=== PATIENT | female | born 1945 | race African-American/Black ===

== ENCOUNTER 2017-10-28 06:03 | Day surgery (SDC) | payer MEDICARE, OTHER ==
--- NOTE | 2017-10-23 16:10 | Pre-Procedure Note/Attestation ---
Pre-Procedure Note/Attestation Complete Prior to Procedure Planned Procedure: left Procedure Narrative: phaco with IOL Indications for Procedure Pre-Operative Diagnosis: cataract Attestation I attest that I discussed the nature of the procedure; its benefits; risks and complications; and alternatives (and the risks and benefits of such alternatives ), prior to the procedure, with the patient (or the patient's legal farm loan representative). I attest that, if there was a reasonable possibility of needing a blood transfusion, the patient (or the patient's legal farm loan representative) was given the [facility] standardized written summary, pursuant to the [place] Blood Safety Act ([place] Health and Safety Code # 1645, as amended). I attest that I re-evaluated the patient just prior to the surgery and that there has been no change in the patient's H&P, except as documented below: SIENA PHILIPPE Oct 23, 2017 16:10
--- NOTE | 2017-10-23 16:12 | Opthalmology H&P ---
Ophthalmology H&P H&P Chief Complaint: decreased vision in left eye HPI Vision Affects Ability to: read, focus/use eyes together, manage personal affairs HPI Narrative blurry vision Exam Visual Acuity: OD: 20/60 OS: 20/100 Tension: OD: 19 OS: 20 Eye Exam: normal OU: external exam, palpebral fissure-width, marginal reflex distance, levator function, corneas, anterior chambers, fundus exam; findings: lens - OD: ns OS: ns Assessment/Plan Diagnosis: (1) Nuclear sclerotic cataract of left eye Treatment Plan: cataract extraction w/ lens implant Goals of Treatment: improvement of vision, enhance quality of life Attestation Attestation The risks and benefits of the surgery as well as alternative procedures were explained to the patient in detail. SIENA PHILIPPE Oct 23, 2017 16:12
[2017-10-24 09:54] LABS: HEMATOCRIT 42.8 % (37.0-47.0); HEMOGLOBIN 13.6 G/DL (12.0-16.0); MEAN CORPUSCULAR VOLUME 94 FL (80-99); PLATELET COUNT 272 K/UL (150-450); RED BLOOD COUNT 4.53 M/UL (4.20-5.40); RED CELL DISTRIBUTION WIDTH 17.5 % (11.6-14.8); WHITE BLOOD COUNT 4.6 K/UL (4.8-10.8)
[2017-10-24 10:28] LABS: ANION GAP 7 mmol/L (5-15); BLOOD UREA NITROGEN 15 mg/dL (7-18); CALCIUM 8.9 MG/DL (8.5-10.1); CARBON DIOXIDE 31 MMOL/L (21-32); CHLORIDE 105 MMOL/L (98-107); CREATININE 0.9 MG/DL (0.55-1.30); POTASSIUM 3.7 MMOL/L (3.5-5.1); SODIUM 143 MMOL/L (136-145)
--- NOTE | 2017-10-27 16:08 | Cardiology Report ---
APPROVED REPORT EKG Measurement Heart [id number] Normal sinus rhythm with sinus arrhythmia Moderate voltage criteria for LVH, may be normal variant Prolonged QT Abnormal ECG
[~2017-10-28] VITALS: Ht 160 cm; Wt 75.3 kg
[2017-10-28] VITALS (10 sets, daily range): BP systolic 130–141; BP diastolic 70–81
[~2017-10-28 06:03] MED LIST: ACID REDUCER20 MG ORAL; ACYCLOVIR400 MG ORAL; ASPIR 8181 MG ORAL; FLUOXETINE HCL10 M2 ORAL; FLUOXETINE HCL20 M2 ORAL; FOLIC ACID1 M1 PO; FUROSEMIDE40 MG ORAL; HYDROXYCHLOROQ200 M1 PO; MECLIZINE HCL25 MG ORAL; MEDROL4 MG ORAL; METHOTREXATE2.5 MG PO; NORCO 5-325 TA1 EACH ORAL; NORVASC5 MG ORAL; POTASSIUM CHLO10 ME2 PO
[2017-10-28] MEDS ORDERED: Proparacaine 0.5% Opth Soln 15ml LEFT EYE ONE (07:00)
[2017-10-28] MEDS ORDERED: Pred Forte 1% Opth Susp 1ml ONE (07:00)
[2017-10-28] MEDS ORDERED: Tetracaine 0.5% Opth 4ml Soln LEFT EYE ONE (07:00)
[2017-10-28] MEDS ORDERED: Akten 3.5% 1ml Btl LEFT EYE ONE (07:00)
[2017-10-28] MEDS ORDERED: Maxitrol Opth Oint 3.5gm ONE (07:00)
[2017-10-28] MEDS ORDERED: Dexamethasone 4mg/ml vial ONE (07:00)
[2017-10-28] MEDS ORDERED: Pilocarpine 2% Opth 15ml Soln ONE (07:00)
[2017-10-28] MEDS ORDERED: EPINEPHrine 1mg/1ml Amp ONE (07:38)
[2017-10-28] MEDS ORDERED: Povidone-Iodine 5% opth solution ONE (07:39)
[2017-10-28] MEDS ORDERED: BSS 500ml btl ONE (07:39)
[2017-10-28] MEDS ORDERED: BSS 15ml BTL ONE (07:39)
[2017-10-28] MEDS ORDERED: Sodium Hyaluronate 14 mg/ml 0.85ml ONE (07:39)
[2017-10-28] MEDS: Tropicamide 1% Opth 15ml Soln LEFT EYE SCH ×3 (08:20→08:34)
[2017-10-28] MEDS: Phenylephrine 10% Opth Soln 5ml LEFT EYE SCH ×3 (08:20→08:34)
[2017-10-28] MEDS: Cyclopentolate 1% Opth Sol 2ml LEFT EYE SCH ×3 (08:20→08:34)
[2017-10-28] MEDS: Diclofenac Sod 0.1% Op Soln LEFT EYE SCH ×3 (08:20→08:34)
[2017-10-28] MEDS: Tobramycin Op Soln 0.3% 5ml LEFT EYE SCH ×3 (08:20→08:34)
--- NOTE | 2017-10-28 09:47 | Anethesia Preoperative Eval ---
Anesthesia Pre-op PMH/ROS General Date of Evaluation: Oct 28, 2017 Time of Evaluation: 09:44 Anesthesiologist: Marylin De Leon CRNA ASA Score: ASA 3 Mallampati Score Class I : Soft palate, uvula, fauces, pillars visible Class II: Soft palate, uvula, fauces visible Class III: Soft palate, base of uvula visible Class IV: Only hard plate visible Mallampati Classification: Class II Surgeon: Paris Diagnosis: LEFT cataract Surgical Procedure: LEFT cataract extraction with IOL Anesthesia History: none Family History: no anesthesia problems Allergies: Coded Allergies: No Known Allergies (Unverified , 10/28/17) Medications: see eMAR Past Medical History Cardiovascular: Reports: HTN, other - takes lasix PRN denies hx of CHF Pulmonary: Denies: asthma, COPD, ANTONY, other Gastrointestinal/Genitourinary: Reports: GERD; Denies: CRI, ESRD, other Neurologic/Psychiatric: Denies: dementia, CVA, depression/anxiety, TIA, other Endocrine: Reports: other - Lupus; Denies: DM, hypothyroidism, steroids HEENT: Reports: cataract (L); Denies: cataract (R), glaucoma, [place] (L), [place] (R), other Hematology/Immune: Reports: anemia; Denies: DVT, bleeding disorder, other Musculoskeletal/Integumentary: Reports: OA; Denies: RA, DJD, DDD, edema, other Other: obesity PMH Narrative: as above PSxH Narrative: c/s, Bilateral tubal ligation Anesthesia Pre-op Phys. Exam Physician Exam Last Vital Signs Date Time Temp Pulse Resp B/P (MAP) Pulse Ox O2 Delivery O2 Flow Rate FiO2 10/28/17 08:24 Room Air 10/28/17 08:23 97.0 71 18 141/79 (99) 100 97.0 Constitutional: NAD Neurologic: CN 2-12 intact Cardiovascular: RRR Respiratory: CTA Gastrointestinal: S/NT/ND Airway Exam Mallampati Score: Class II MO: full ROM: full Teeth: broken Dentures: no upper, no lower Anesthesia Pre-op A/P Labs see chart Studies Pre-op Studies: EKG - NSR with SA, LVH, prolonged QT Risk Assessment & Plan Assessment: ASA 3ok to proceed Plan: MAC Status Change Before Surgery: No Pre-Antibiotics Given Within 1 Hr of Incision: No Geri De Leon [employer]ACHINE OPERATOR Oct 28, 2017 09:47
[2017-10-28] MEDS ORDERED: Midazolam 2mg/2ml Inj ONE (09:51)
[2017-10-28] MEDS ORDERED: LR 1000ml ONE (10:00)
[2017-10-28] MEDS ORDERED: NS Irrig 1000ml ONE (10:00)
[2017-10-28] MEDS ORDERED: Sterile Water Irrig 1000ml IRRIG ONE (10:00)
[2017-10-28] MEDS ORDERED: Solu-MEDROL 40mg Inj ONE (10:10)
--- NOTE | 2017-10-28 10:54 | Immediate Post-Op Evaluation ---
Immediate Post-Op Evalulation Immediate Post-Op Evalulation Procedure: LEFT cataract extraction with IOL Date of Evaluation: Oct 28, 2017 Time of Evaluation: 10:47 IV Fluids: LR 200 ML Estimated Blood Loss: 01 Blood Pressure Systolic: 132 Blood Pressure Diastolic: 71 Pulse Rate: 77 Respiratory Rate: 19 O2 Sat by Pulse Oximetry: 100 Temperature (Fahrenheit): 98.1 Pain Score (1-10): 0 Nausea: No Vomiting: No Complications none Patient Status: awake, reacts, patent Hydration Status: adequate Given Within 1 Hr of Incision: Geri Potter CRNA Oct 28, 2017 10:54
--- NOTE | 2017-10-28 12:48 | 48 Hour Post Anesthesia Eval ---
Post Anesthesia Evaluation Procedure: LEFT cataract extraction with IOL Date of Evaluation: Oct 28, 2017 Time of Evaluation: 11:30 Blood Pressure Systolic: 132 0: 79 Pulse Rate: 70 Respiratory Rate: 14 Temperature (Fahrenheit): 98.1 O2 Sat by Pulse Oximetry: 100 Airway: patent Nausea: No Vomiting: No Pain Intensity: 0 Hydration Status: adequate Cardiopulmonary Status: stable Mental Status/LOC: patient returned to baseline Follow-up Care/Observations: none Post-Anesthesia Complications: none Follow-up care needed: ready to discharge Geri De Leon CRNA Oct 28, 2017 12:48
[2017-10-28] MEDS ORDERED: acetaZOLAMIDE 500mg Inj ONE (14:23)
--- NOTE | 2017-10-29 17:05 | Brief Operative Note ---
Immediate Post Operative Note Operative Note Chief Complaint: blurry vision Pre-op Diagnosis: cataract, OS Procedure: phaco with IOL Post-op Diagnosis: Pseudophakia Post-op Diagnosis: same as pre-op Findings: consistent w/pre-op dx studies Surgeon: Paris Anesthesiologist: Haley Anesthesia: MAC Specimen: none Complications: none Condition: stable Fluids: LR Estimated Blood Loss: none Drains: none Implant(s) used?: Yes SIENA PHILIPPE Oct 29, 2017 17:05
--- NOTE | 2017-10-30 09:11 | Operative Note - PDOC ---
Operative Note Operative Note Date of Operation/Procedure: Oct 28, 2017 Chief Complaint: blurry vision Pre-op Diagnosis: cataract, OS Procedure: phaco with IOL Post-op Diagnosis: Pseudophakia Post-op Diagnosis: same as pre-op Operative Findings: consistent w/pre-op dx studies Surgeon: Paris Anesthesiologist: Haley Anesthesia: MAC Specimen: none Complications: none Condition: stable Fluids: LR Estimated Blood Loss: none Drains: none Implant(s) used?: Yes Indications for Procedure cataract Description of Procedure This patient has been complaining visually significant cataract in the affected eye with the best corrected visual acuity under moderate glare conditions worse. The patient complains of difficulties with glare in performing activities of daily living and wants to manage personal affairs with comfort and accuracy and see well enough to move with safety at home and outdoors. The risks, benefits and alternatives of the procedure were discussed with the patient in the office prior to scheduling surgery. All questions from the patient were answered after the surgical procedure was explained in detail. The risks of the procedure as explained to the patient include, but are not limited to, pain, infection, bleeding, loss of vision, retinal detachment, need for further surgery, loss of lens nucleus, double vision, etc. Alternative procedures were discussed which include, to do nothing or seek a second opinion. Informed consent for this procedure was obtained from the patient. The patient was referred to a primary care physician for a cardiopulmonary clearance prior to surgery, after proper evaluation was done patient was properly scheduled for outpatient surgery. The patient was brought to the operating room where the anesthesiologist established I.V. lines and cardiac monitoring leads. Mild intravenous sedation was administered. The patient was then prepared with a 5% solution of povidone -iodine to the conjunctival fornix and lashes, and a 5% solution of povidone- iodine to the lids and periorbital skin. The patient was then draped in the usual sterile fashion. A lid speculum was then placed in the operative eye. A keratome blade was then used to create a biplanar incision into the anterior chamber. Viscoelastics was then instilled into the anterior chamber. A curvilinear capsulorrhexis was then fashioned with an utrata forceps. A BSS was used with G-27 cannula was used to hydrodissect and hydrodelineate the lens nucleus. Paracentesis incision was made at 9 o'clock with sharp blade. The phacoemulsification unit, after being properly adjusted and tested, was then used to emulsify the nucleus. Residual cortical material was aspirated with the irrigation and aspiration unit. Healon was then instilled into the anterior chamber. The corneal wound was then enlarged to the size of the optic with the edna keratome blade. The intraocular lens was then inspected for right power and size and thought to be satisfactory. Then the lens was gently placed in the capsular bag. Positioning within the capsular bag was confirmed by direct visualization. Optic centration was accomplished with a Sins[place] hook. Viscoelastics was removed from the anterior chamber using the irrigation and aspiration unit. The corneal wound was then tested for leaks and none were found. The lid speculum were then removed. Sponge and needle counts were correct. An eye patch and shield were placed over the operative eye. The patient was taken to the recovery room in stable condition. There were no complications. The patient tolerated the procedure well. The patient was then transferred to the ambulatory surgery unit in stable and satisfactory condition , was given detailed written instructions and asked to follow up in the office the next day. SIENA PHILIPPE Oct 30, 2017 09:11
== END 2017-10-28 12:20 | disposition home or self-care (01) ==
LOC: SUR 06:03
DX: H25.12 Age-related nuclear cataract, left eye (principal); I11.0 Hypertensive heart disease with heart failure; I50.9 Heart failure, unspecified; J44.9 Chronic obstructive pulmonary disease, unspecified; K21.9 Gastro-esophageal reflux disease without esophagitis; H40.9 Unspecified glaucoma; M32.9 Systemic lupus erythematosus, unspecified; D64.9 Anemia, unspecified; M19.90 Unspecified osteoarthritis, unspecified site; E66.9 Obesity, unspecified
CPT/HCPCS: 36415; 66984; 80048; 85007; 85025; 85610; 85730; 93005; J0171; J1100; J1120; J2250; J2920; J3370; V2632; 94003; 94150